=== PATIENT | male | born 1980 | race Caucasian/White ===

== ENCOUNTER 2025-01-13 07:33 | Outpatient (OUT) | payer OTHER, SELFPAY ==
--- OUTSIDE RECORDS SUMMARY | 2025-01-12 09:45 | XMS_ITS ---
Author Organization [facility] [place] in [place] Address [address] [place] [address] Care Team Providers Care [employer] Name Role Phone Gaurang Farfan Primary Care Provider Allergies Allergen (clinical drug ingredient) Drug/Non Drug Allergy documented on EMR Reaction Allergy Type Onset Date Status aspirin Aspirin rash Drug Allergy Active REASON FOR VISIT not seen in [facility] system--check up, When younger drank energy drinks, had an arrhythmia- last week when out in the heat had weird feeling- felt like body was vibrating- had 100.2 fever two days later Social History Tobacco Use: Social History Observation Description Date Details (start date - stop date) Former Smoker 12/27/1998 - 2012 Tobacco Control (Standard) Question Answer Notes Tobacco use: Former smoker When did you start smoking? 12/27/1998 When did you stop smoking? 2012 Additional Findings: Tobacco non-user Ex-moderat e cigarette smoker (10-19/day) AUDIT-C (Standard) Question Answer Notes Did you have a drink contain ing alcohol in the past year? Yes How often did you have a dri nk containing alcohol in the past year? Never (0 point) How many drinks did you have on a typical day when you were drinking in the past year? 3 or 4 drinks (1 point) How often did you have six o r more drinks on one occasion in the past year? 2 to 4 times a month (2 points) Points 3 Interpretation Negative Problems Problem Type SNOMED Code ICD Code Onset Dates Problem Status W/U Status Risk Notes Problem Palpitations (82844375) Palpitations (R00.2) Active confirmed Problem Well adult (223704858) Well adult (Z00.00) Active confirmed Vital Signs Weight 133.2 lbs 01/12/2025 Height 69 in 01/12/2025 Blood pressure systolic 136 mm Hg 01/13/20 25 Blood pressure diastolic 88 mm Hg 025 BMI 19.67 kg/m2 01/12/2025 Procedures Procedure Date Ordered Date Performed Result Body Sit e EKG w Interp & Report - performed 01/12/2025 N/ A Holter Monitor - 3 days up to 14 days 01/12/2025 N/A Encounters Encounter Location Date Provider Diagnosis [facility] [address] [facility] [place] [address] 01/12/2025 Gaurang Naheed Palpitations R00.2 a nd Well adult Z00.00 Assessments Encounter Date Diagnosis (ICD Code) Assessment Notes Treatment Notes Treatment Clinical Notes Section Notes 01/12/2025 Palpitations (ICD-10 - R00.2) 01/12/2025 Well adult (ICD-10 - Z00.00) Plan Of Treatment Pending Test Test Name Order Date HEMOGLOBIN A1C (GLYCO) 01/12/2025 INSULIN, TOTAL 01/12/2025 LIPID PANEL (CHOL/TRIG/HDL/LDL) 01/13/20 25 EKG w Interp & Report - performed 2024 THYROID PANEL (T4/TSH/FREE T3) 5 Holter Monitor - 3 days up to 14 days PSA, SCREENING 01/12/2025 CMP (COMP MET EAST) w/eGFR CKD-EPI 2024 CBC WITH DIFF 01/12/2025 Progress Notes * Orlando STRATTONDOB:1980 (44 yo M)Acc No.[id number]:01/12/2025 UNLOCKED PROGRESS NOTE New Patient Patient: Orlando SAAVEDRA Provider: Lalitha Farfan ([facility])MD :1980 A ge:44 Y S ex:Male Date:01/12/2025 Address:[address] [place], [place] [id number] Check In:01:33 PM ESTCheck O ut:02:24 PM EST Subjective: * Chief Complaints: * 1 . Not seen in new system--check up. 2. When younger drank energy drinks, had an arrhythmia- last week when out in the heat had weird feeling- felt like body was vibrating- had 100.2 fever two days later. * HPI: D epression Screening: PHQ-2 (2015 Edition) L ittle interest or pleasure in doing things?�Not at all F eeling down, depressed, or hopeless? N ot at all T otal Score 0 Hx of palpitations - needed admitteed - that was due to energy drinks working outside lately - could feel it again - not on energy drinks no cp - no pressure - - had similare 2 years ago - had to sit and let it settle working on better diet and healthy - less caffeine. * ROS: E ENT: hearing changes d enies. v isual changes d enies.�non-healing mouth sores d enies. s wollen glands or neck lumps d enies. h oarseness d enies. s ore throat d enies. d ifficulty swallowing d enies. n ose bleeds d enies. n silvia congestion d enies. e ar ache d enies. e ar discharge�denies. r inging in ears d enies. l ight sensitivity d enies. e ye pain d enies. b lurring d enies. e ye irritation d enies. d ouble vision d enies.�vision loss d enies. G eneral/Constitutional: Sweats: D enies. F atigue d enies. S leep problems d enies. A norexia d enies. M alaise d enies. W eight loss d enies.�Fatigue or Weakness d enies. F ever or Chills d enies. C ardiovascular: Shortness of Breath w/lying flat d enies. L ightheadedness/dizziness d enies. C hest tightness/ heavy pressure d enies. S welling of legs, ankles, or feet d enies. W aking up with shortness of breath d enies. C hest pain denies. P alpitations d enies. W eight gain d enies. R espiratory: Chronic or frequent cough d enies. C oughing up blood�denies. D ifficulty breathing d enies. P roductive cough d enies. S noring�denies. S hortness of breath that awakens from sleep (PND) d enies. C hest pain d enies. S putum production d enies. W heezing d enies. M usculoskeletal: Joint pain d enies. J oint Fluid d enies. B ack pain d enies. K nee pain d enies. N lynette pain d enies. J oint Stiffness d enies. M uscle cramps d enies. W eakness of muscles d enies. A rthritis d enies. M uscle aches d enies. P ain in shoulder(s) d enies. S wollen joints d enies. * Medical History: M edical History Verified. * Surgical History: [facility] . * Hospitalization/Major Diagno stic Procedure: D enies Past Hospitalization. * Family History: F ather: alive. M other: alive. B rother(s): alive. S ister(s): alive. S on(s): alive. P aternal Grandfather: heart attack. P aternal Grandmother: asthma,copd. 2 brother(s) , 5 sister(s) . 1 son(s) - healthy. . * Social History: T obacco Use: T obacco Control (Standard) T obacco use: F ormer smoker W hen did you start smoking? 0 12/27/1998 W hen did you stop smoking? 0 2012 A dditional Findings: Tobacco non-user E x-moderate cigarette smoker (10-19/day) D rug/Alcohol: A TAVON-C (Standard) D id you have a drink containing alcohol in the past year? Y es H ow often did you have a drink containing alcohol in the past year? N ever (0 point) H ow many drinks did you have on a typical day when you were drinking in the past year? 3 or 4 drinks (1 point) H ow often did you have six or more drinks on one occasion in the past year? 2 to 4 times a month (2 points) P oints 3 I nterpretation N egative * Medications: N one * Allergies: A spirin: rash - Allergy. Objective: * Vitals: W t:133.2lbs, Ht: 69 in, BP:136/88mm Hg, BMI:19.67Index, Ht-cm: 175.26 cm, Wt-k.42 kg. * Examination: P hysical Exam: GENERAL: w ell developed, well nourished, in no acute distress. HEAD: n ormocephalic/atraumatic. EYES: p upils equal, round and reactive to light, conjunctivae and sclerae normal. EARS: n o deformity or lesion of external ear, canals and TM appear normal bilaterally, TM's intact, not inflamed with normal light reflex, hearing grossly normal to conversational speech. NOSE: n o deformity, discharge, inflammation, or lesions.� MOUTH: m ucous membranes moist, normal oropharynx and posterior pharynx without lesions or exudates, tongue normal, dentition normal. NECK: n lynette supple, no masses or palpable cervical nodes, trachea midline, thyroid without nodules, masses, tenderness, or enlargement. CHEST: n o chest wall deformity, no chest wall tenderness.� LUNGS: n ormal respiratory effort and clear to auscultation, no wheezes, rales, or rhonchi, good air exchange. CARDIO: r egular rate and rhythm, normal S1 and S2, nor murmur, rub, or gallop. PULSES: n ormal capillary refill. ABDOMEN: s oft, non-distended, non-tender, no masses. MUSCULOSKELETAL: n o deformity or scoliosis noted, normal range of motion, joints normal, no erythema, edema, effusion, or ecchymosis. EXTREMITY: n o clubbing, cyanosis, edema, or deformity with normal ROM in both upper and lower bilateral extremities. NEUROLOGIC: g rossly normal. SKIN: n o rashes, ulcerations, or suspicious lesions. LYMPH NODES: n o cervical adenopathy, nodes normal. MENTAL STATUS: a lert and oriented x3, normal mood and affect. Assessment: * Assessment: 1. P alpitations - R00.2 (Primary) 2 . W ell adult - Z00.00 � Plan: * Treatment: 2.�Well adult� �����LAB: HEMOGLOBIN A1C (GLYCO) �����LAB: INSULIN, TOTAL �����LAB: LIPID PANEL (CHOL/TRIG/HDL/LDL) �����LAB: THYROID PANEL (T4/TSH/FREE T3) �����LAB: PSA, SCREENING �����LAB: CMP (COMP MET EAST) w/eGFR CKD-EPI �����LAB: CBC WITH DIFF * Procedure Codes: 9 3000 EKG, WINTERP. * Preventive Medicine: Screenings/Counseling: B CT ACTION PLAN Below Normal BMI Follow-up D ietary management education, guidance, and counseling * * Electronic signature of Gaurang Farfan MD, [id number] on 01/13/2025 at 07:38 AM EDT Sign off status: Pending Visit Status: C HK (Check Out) * Provider: Lalitha Farfan ([facility])MD Date: 0 01/12/2025 Generated for Printi ng/Faxing/eTransmitting on: 0 01/13/2025 07:38 AM EDT History and Physical Notes * HPI (History of Present Illness) Category Sub-Category Detail Notes Category Not es Depression Screening PHQ-2 (2015 Edition) Little interest or pleasure in doing things?: Not at all Hx of palpitations - needed admitteed - that was due to energy drinks working outside lately - could feel it again - not on energy drinks no cp - no pressure - - had similare 2 years ago - had to sit and let it settle working on better diet and healthy - less caffeine Feeling down, depressed, or hopeless?: N ot at all Total Score: 0 Examination Category Sub-Category Detail Notes Category Not es Physical Exam GENERAL: well developed, well nourished, in no acute distress HEAD: normocephalic/atraum atic EYES: pupils equal, round and reactive to light, conjunctivae and sclerae normal EARS: no deformity or lesi on of external ear, canals and TM appear normal bilaterally, TM's intact, not inflamed with normal light reflex, hearing grossly normal to conversational speech NOSE: no deformity, discha rge, inflammation, or lesions MOUTH: mucous membranes hans st, normal oropharynx and posterior pharynx without lesions or exudates, tongue normal, dentition normal NECK: neck supple, no mass es or palpable cervical nodes, trachea midline, thyroid without nodules, masses, tenderness, or enlargement CHEST: no chest wall deform ity, no chest wall tenderness LUNGS: normal respiratory e ffort and clear to auscultation, no wheezes, rales, or rhonchi, good air exchange CARDIO: regular rate and rhy thm, normal S1 and S2, nor murmur, rub, or gallop PULSES: normal capillary ref ill ABDOMEN: soft, non-distended, non-tender, no masses RECTAL: MUSCULOSKELETAL: no deformity or scol iosis noted, normal range of motion, joints normal, no erythema, edema, effusion, or ecchymosis EXTREMITY: no clubbing, cyanosi s, edema, or deformity with normal ROM in both upper and lower bilateral extremities NEUROLOGIC: grossly normal SKIN: no rashes, ulceratio ns, or suspicious lesions LYMPH NODES: no cervical adenopat hy, nodes normal MENTAL STATUS: alert and oriented x 3, normal mood and affect
--- NOTE | 2025-01-13 07:56 | ECG_ITS ---
[facility] Test Date: 2025-01-13 Pat Name: ESTELLA STRATTON Department: Room: - Gender: Male [employer]: : 1980 Requested By: OSITO DICKSON Order Number: [id number] Reading MD: THOMAS HOOK Measurements Intervals [place] Rate: 55 P: 83 MA: 152 QRS: 87 QRSD: 85 T: 69 QT: 398 QTc: 381 Interpretive Statements SINUS BRADYCARDIA Peaked T waves consider hyperkalemia Borderline ECG No previous ECG available for comparison Electronically Signed On 01-13-2025 10:08:23 EDT by THOMAS HOOK
[2025-01-13 08:06] LABS: Hematocrit 46.7 % (42.0-54.0); Hemoglobin 15.8 g/dL (14.0-18.0); Immature Granulocytes Abs Auto 0.02 10^3/uL (0.00-0.03); Immature Granulocytes Pct Auto 0.4 % (0.0-0.5); Lymphocytes Absolute Auto 1.9 10^3/uL (1.2-3.8); Mean Corpuscular HGB Conc 33.8 g/dL (29.9-35.2); Mean Corpuscular Hemoglobin 30.8 pg (25.9-34.0); Mean Corpuscular Volume 91.0 fL (80.0-94.0); Platelet Count 269 10^3/uL (150-450); Red Blood Count 5.13 10^6/uL (4.70-6.10); White Blood Count 5.5 10^3/uL (4.0-11.0)
[2025-01-13 08:21] LABS: Alanine Aminotransferase 19 U/L (16-63); Albumin Globulin Ratio 1.3; Albumin Level 4.1 g/dL (3.4-5.0); Alkaline Phosphatase 58 U/L (46-116); Anion Gap 13.5; Aspartate Amino Transferase 13 U/L (15-37); Blood Urea Nitrogen 18.0 mg/dL (7.0-18.0); Calcium 9.3 mg/dL (8.5-10.1); Carbon Dioxide 28.8 mmol/L (21.0-32.0); Chloride 104 mmol/L (98-107); Cholesterol 137 mg/dL (<=200); Estimated GFR (African America >60 (>=60 mL/min/1.73m^2); Estimated GFR (Non-African Ame >60 (>=60 mL/min/1.73m^2); Free T3 3.02 pg/mL (2.18-3.98); Globulin 3.1 g/dL; Glucose 94 mg/dL (74-106); HDL Cholesterol 58 mg/dL (40-60); Potassium 4.3 mmol/L (3.5-5.1); Sodium 142 mmol/L (136-145); Thyroid Stimulating Hormone 1.785 uIU/mL (0.358-3.740); Total Protein 7.2 g/dL (6.4-8.2); Triglycerides 35 mg/dL (<=150); VLDL CHOLESTEROL 7.0 mg/dL
== END 2025-01-13 07:34 | disposition home or self-care (01) ==
PROVIDERS: PCP Family Medicine; Visit Provider Family Medicine
DX: Z00.00 Encounter for general adult medical examination without abnormal findings (principal); R00.2 Palpitations; Z12.5 Encounter for screening for malignant neoplasm of prostate
CPT/HCPCS: 36415; 80053; 80061; 83036; 83525; 84436; 84443; 84481; 93005; 93246; G0103